=== PATIENT | male | born 1960 ===

== ENCOUNTER 2018-10-15 12:36 | Emergency (ER) | payer MEDICARE, OTHER ==
[2018-10-15 12:37] VITALS: BMI 34.4
[2018-10-15 12:42] VITALS: BP 133/85; PULSE 95; RESP 20; TEMP 98.1; O2SAT 100
--- NOTE | 2018-10-15 14:06 | C.PDOC ---
History Of Present Illness 58 year old male presents to the ED complaining of right wrist pain status post placing his right hand out to stop a fall 3-4 days ago. Reports he was seen by his PMD today who gave him an injection and instructed him to come to the ED for Xrays. States he has been taking Advil with minimal relief. Denies any weakness, numbness, or tingling, LOC, head injury, or any other injuries. Chief Complaint (Nursing): Upper Extremity Problem/Injury History Per: Patient History/Exam Limitations: no limitations Onset/Duration Of Symptoms: Days Current Symptoms Are (Timing): Still Present Quality: "Pain" Past Medical History Reviewed: Historical Data, Nursing Documentation, Vital Signs Vital Signs: Last Vital Signs Temp 98.1 F 10/15/18 12:40 Pulse 95 H 10/15/18 12:40 Resp 20 10/15/18 12:40 BP 133/85 10/15/18 12:40 Pulse Ox 100 10/15/18 12:40 Primary Care Provider: Clinic,Med Surg - Medical History PMH: HTN, Hypercholesterolemia Surgical History: No Surg Hx - [facility] Procedures DEBRIDEMENT OF NAIL, NAIL BED OR NAIL FOLD (11/30/12) Family History: States: No Known Family Hx - Social History Hx Alcohol Use: No Hx Substance Use: No Review Of Systems Constitutional: Negative for: Weakness Musculoskeletal: Positive for: Other (right wrist hand ) Skin: Negative for: Rash, Bruising Neurological: Negative for: Numbness, Dizziness, Other (tingling) Physical Exam - Physical Exam Appears: Non-toxic, No Acute Distress Skin: Warm, Dry, No Rash Head: Atraumatic, Normacephalic Eye(s): bilateral: Normal Inspection, PERRL Nose: Normal Oral Mucosa: Moist Neck: Normal ROM, Supple Chest: Symmetrical Cardiovascular: Rhythm Regular Respiratory: Normal Breath Sounds, No Accessory Muscle Use, No Rales, No Rhonchi, No Wheezing Extremity: No Normal ROM (limited ROM secondary to pain ), Tenderness (tenderness to right wrist), Capillary Refill (less than 2 sec to right wrist), No Deformity, Other (erythematous and edematous right wrist ) Pulses: Left Radial: Normal, Right Radial: Normal Neurological/Psych: Oriented x3, Normal Speech, Normal Cognition, Normal Sensation Gait: Steady ED Course And Treatment O2 Sat by Pulse Oximetry: 100 (RA) Pulse Ox Interpretation: Normal - Other Rad right wrist X-Ray: Viewed By Me, Read By Radiologist Interpretation: Accession No. : [id number]. Patient Name / ID : ANA BOOGIE / [id number]. Exam Date : 10/15/2018 13:24:13 ( Approved ). Study Comment : Sex / Age : M / 58Y. Creator : Gabriel Valera MD. Dictator : Gabriel Valera MD. Forming And Assembling Supervisor : Tools And Parts Attendant : Gabriel Valera MD. Approver2 : Report Date : 10/15/2018 14:37:59. My Comment : . Date of service: 10/15/2018. PROCEDURE: Right Wrist Radiographs. . HISTORY: s/p fall. COMPARISON: Correlation made with concurrent radiographs of the right hand. TECHNIQUE: 4 views obtained. FINDINGS: BONES: Normal. No fracture.. There is a small nonspecific cystic focus within the distal radial styloid. JOINTS: Normal. No dislocation. SOFT TISSUES: Normal. OTHER FINDINGS: None. IMPRESSION: No definitive radiographic evidence of acute displaced fracture nor dislocation. If symptoms persist or occult fracture suspected clinically recommend repeat radiographs in 7-10 days as most fractures should become radiographically evident in this timeframe. right hand X-Ray: Viewed By Me, Read By Radiologist Interpretation: Accession No. : [id number]. Patient Name / ID : ANA BOOGIE / [id number]. Exam Date : 10/15/2018 13:24:22 ( Approved ). Study Comment : Sex / Age : M / 58Y. Creator : Gabrile Valera MD. Dictator : Gabriel Valera MD. Forming And Assembling Supervisor : Tools And Parts Attendant : Gabriel Valera MD. Approver2 : Report Date : 10/15/2018 14:40:06. My Comment : . PROCEDURE: Right Hand Radiographs. HISTORY: s/p fall. COMPARISON: Correlation made with concurrent radiographs of the right wrist. TECHNIQUE: 3 views obtained. FINDINGS: BONES: Normal. No fracture. There is a tiny cystic focus distal radial styloid. Small cystic changes are also seen in the radial aspect head 3rd metacarpal and possibly within the ulnar distal ulnar aspect of the proximal phalanx 4th finger distal. JOINTS: . No significant osteoar thritic changes. SOFT TISSUES: Normal. OTHER FINDINGS: None. IMPRESSION: No definitive radiographic evidence of acute displaced fracture nor dislocation. If symptoms persist or occult fracture suspected clinically recommend repeat radiographs in 7-10 days as most fractures should become radiographically evident in this timeframe. Medical Decision Making Medical Decision Making: Plan - XR right hand and XR right wrist ordered and reviewed with patient - No dislocation or fracture noted - Wrist Brace placed by collection supervisor. - Patient instructed to follow with health safety specialist in 1-2 days. - Patient verbalizes understanding and is in agreement with plan. - Patient is stable for discharge. Disposition Counseled Patient/Family Regarding: Studies Performed, Diagnosis, Need For Followup, Rx Given - Disposition Referrals: Orthopedic Clinic at [Outside] Sreekanth Carreno MD [Staff Provider] - Disposition: HOME/ ROUTINE Disposition Time: 14:03 Condition: IMPROVED Additional Instructions: continue meds as prescribed rest, ice, compression, and elevation follow up with PMD in 1-2 days Return to ED if symptoms worsen continuar los medicamentos segn lo prescrito reposo, hielo, compresin y elevacin seguimiento con PMD en 1-2 garcia Regrese a la ED si los sntomas empeoran Prescriptions: Naproxen [Naprosyn] 500 mg PO BID #30 tablet Instructions: Muscle and Bone Pain (DC) Forms: [employer] (Bots[place]an) Print Language: [place] - Clinical Impression Clinical Impression: Right hand pain - PA / HOME [employer]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 - Scribe Statement The provider has reviewed the documentation as recorded by the Scribe Jazmin Ribeiro All medical record entries made by the Scribe were at my direction and personally dictated by me. I have reviewed the chart and agree that the record accurately reflects my personal performance of the history, physical exam, medical decision making, and the department course for this patient. I have also personally directed, reviewed, and agree with the discharge instructions and disposition.
--- NOTE | 2018-10-15 14:42 | RAD ---
Date of service: 10/15/2018 PROCEDURE: Right Wrist Radiographs. HISTORY: s/p fall COMPARISON: Correlation made with concurrent radiographs of the right hand TECHNIQUE: 4 views obtained. FINDINGS: BONES: Normal. No fracture.. There is a small nonspecific cystic focus within the distal radial styloid. JOINTS: Normal. No dislocation. SOFT TISSUES: Normal. OTHER FINDINGS: None. IMPRESSION: No definitive radiographic evidence of acute displaced fracture nor dislocation. If symptoms persist or occult fracture suspected clinically recommend repeat radiographs in 7-10 days as most fractures should become radiographically evident in this timeframe.
--- NOTE | 2018-10-15 14:43 | RAD ---
PROCEDURE: Right Hand Radiographs. HISTORY: s/p fall COMPARISON: Correlation made with concurrent radiographs of the right wrist TECHNIQUE: 3 views obtained. FINDINGS: BONES: Normal. No fracture. There is a tiny cystic focus distal radial styloid. Small cystic changes are also seen in the radial aspect head 3rd metacarpal and possibly within the ulnar distal ulnar aspect of the proximal phalanx 4th finger distal. JOINTS: . No significant osteoarthritic changes. SOFT TISSUES: Normal. OTHER FINDINGS: None. IMPRESSION: No definitive radiographic evidence of acute displaced fracture nor dislocation. If symptoms persist or occult fracture suspected clinically recommend repeat radiographs in 7-10 days as most fractures should become radiographically evident in this timeframe.
== END 2018-10-15 14:24 | disposition home or self-care (01) ==
LOC: C.ER 12:36
DX: M79.641 Pain in right hand (principal)